=== PATIENT | male | born 1940 | race Two or more races ===

== ENCOUNTER 2019-11-08 13:30 | Outpatient (CLI) | payer MEDICARE, OTHER | END 2019-11-08 23:59 | disposition home health service (06) | LOC: WOU 13:30 | PROVIDERS: ATTEND Podiatrist Foot & Ankle Surgery | DX: E11.621 Type 2 diabetes mellitus with foot ulcer (principal); L97.522 Non-pressure chronic ulcer of other part of left foot with fat layer exposed; T81.89XA Other complications of procedures, not elsewhere classified, initial encounter; E11.42 Type 2 diabetes mellitus with diabetic polyneuropathy; E11.51 Type 2 diabetes mellitus with diabetic peripheral angiopathy without gangrene; Z79.4 Long term (current) use of insulin; Z79.01 Long term (current) use of anticoagulants; Z79.82 Long term (current) use of aspirin; F17.208 Nicotine dependence, unspecified, with other nicotine-induced disorders | CPT/HCPCS: 11042 ==

== ENCOUNTER 2020-02-07 13:45 | Outpatient (CLI) | payer OTHER, MEDICARE | END 2020-02-07 23:59 | disposition home health service (06) | LOC: WOU 13:45 | PROVIDERS: ATTEND Podiatrist Foot & Ankle Surgery | DX: E11.621 Type 2 diabetes mellitus with foot ulcer (principal); L97.523 Non-pressure chronic ulcer of other part of left foot with necrosis of muscle; E11.52 Type 2 diabetes mellitus with diabetic peripheral angiopathy with gangrene; E11.42 Type 2 diabetes mellitus with diabetic polyneuropathy; I96 Gangrene, not elsewhere classified; F17.200 Nicotine dependence, unspecified, uncomplicated; Z74.09 Other reduced mobility; Z95.820 Peripheral vascular angioplasty status with implants and grafts | CPT/HCPCS: G0463 ==